=== PATIENT | female | born 1985 | race African-American/Black ===

== ENCOUNTER 2017-07-15 15:56 | Emergency (ER) | payer BC ==
[2017-07-15] MEDS ORDERED: MAG HYDROX/AL HYDROX/SIMETH SUSP 30 ML UDCUP PO ONE (16:21)
[2017-07-15] MEDS ORDERED: LIDOCAINE 2% VISCOUS SOLN 20 ML UDCUP PO ONE (16:21)
--- NOTE | 2017-07-15 16:25 | ER Document Report ---
ED Medical Screen (RME) - General Chief Complaint: Abdominal Pain Stated Complaint: STOMACH PAIN Time Seen by Provider: 07/15/17 16:15 Notes: This 32-year-old female patient past medical history gastric bypass after complications from a lap band, reports sudden onset 4:30 AM this morning with left-sided abdominal pain going into the back. She has been taking Pepto-Bismol , Tums, and Maalox throughout the day without relief. Brief exam shows the pain to actually be epigastric. She has had her gallbladder removed in the past. She does have a history of reflux and heartburn. She will be given Maalox with lidocaine to see if it does improve her discomfort and lab work including UA will be collected prior to ordering a CT scan. I suspect she will need a double contrasted CT scan if the urinalysis lab work and GI cocktail do not point toward a diagnosis. I have greeted and performed a rapid initial assessment of this patient. A comprehensive ED assessment and evaluation of the patient, analysis of test results and completion of the medical decision making process will be conducted by additional ED providers. TRAVEL OUTSIDE OF THE [place] IN LAST 30 DAYS: No - Related Data Allergies/Adverse Reactions: amoxicillin Allergy (Verified 07/15/17 15:58) latex Allergy (Verified 07/15/17 15:58) Physical Exam - Vital signs Vitals: Temp Pulse Resp BP Pulse Ox 98.4 F 71 16 138/88 H 100 07/15/17 16:00 07/15/17 16:00 07/15/17 16:00 07/15/17 16:00 07/15/17 16:00 Course - Vital Signs Vital signs: Temp Pulse Resp BP Pulse Ox 98.4 F 71 16 138/88 H 100 07/15/17 16:00 07/15/17 16:00 07/15/17 16:00 07/15/17 16:00 07/15/17 16:00
[2017-07-15 16:47] LABS: ABSOLUTE EOSINOPHILS # (AUTO) 0.2 10^3/uL (0.0-0.6); ABSOLUTE LYMPHOCYTES (AUTO) 2.5 10^3/uL (0.5-4.7); ABSOLUTE MONOCYTES (AUTO) 0.5 10^3/uL (0.1-1.4); ABSOLUTE NEUT (AUTO) 3.7 10^3/uL (1.7-8.2); BASOPHILS % (AUTO) 0.5 % (0-2); EOSINOPHILS % (AUTO) 3.3 % (0-6); HEMATOCRIT 35.3 % (36.0-47.0); HEMOGLOBIN 10.5 g/dL (12.0-15.5); LYMPHOCYTES % (AUTO) 36.2 % (13-45); MEAN CORPUSCULAR HEMOGLOBIN 20.9 pg (27.0-33.4); MEAN CORPUSCULAR HGB CONC 29.7 g/dL (32.0-36.0); MEAN CORPUSCULAR VOLUME 70 fl (80-97); MONOCYTES % (AUTO) 6.5 % (3-13); PLATELET COUNT 369 10^3/uL (150-450); RED BLOOD COUNT 5.02 10^6/uL (3.72-5.28); RED CELL DISTRIBUTION WIDTH 28.8 % (11.5-14.0); SEGMENTED NEUTROPHILS % (AUTO) 53.5 % (42-78); TOTAL CELLS COUNTED % (AUTO) 100 %
[2017-07-15 17:05] LABS: ALANINE AMINOTRANSFERASE 30 U/L (9-52); ALBUMIN 3.8 g/dL (3.5-5.0); ALKALINE PHOSPHATASE 89 U/L (38-126); ANION GAP 5 (5-19); ASPARTATE AMINO TRANSFERASE 19 U/L (14-36); BILIRUBIN,DIRECT 0.3 mg/dL (0.0-0.4); BILIRUBIN,TOTAL 0.3 mg/dL (0.2-1.3); BLOOD UREA NITROGEN 10 mg/dL (7-20); CALCIUM 9.2 mg/dL (8.4-10.2); CARBON DIOXIDE 26 mmol/L (22-30); CHLORIDE 108 mmol/L (98-107); GLUCOSE 88 mg/dL (75-110); LIPASE 58.2 U/L (23-300); POTASSIUM 4.5 mmol/L (3.6-5.0)
[2017-07-15 17:17] LABS: ACANTHOCYTES SLIGHT; ANISOCYTOSIS 3+; HYPOCHROMASIA 1+; OVALOCYTES SLIGHT; PLATELET COMMENT ADEQUATE; POIKILOCYTOSIS 2+; TOXIC GRANULATION SLIGHT
[2017-07-15] MEDS ORDERED: NORMAL SALINE 1000 ML 1,000 ML IV ONE (17:17)
[2017-07-15] MEDS ORDERED: ONDANSETRON HCL INJ/PF 4 MG/2 ML SDV IV ONE (17:17)
[2017-07-15] MEDS ORDERED: MORPHINE SULFATE 10 MG/ML INJ IV ONE (17:17)
--- NOTE | 2017-07-15 17:19 | ER Document Report ---
ED GI/ - General Chief Complaint: Abdominal Pain Stated Complaint: STOMACH PAIN Time Seen by Provider: 07/15/17 16:15 Notes: 32-year-old female. Prior history of abdominoplasty surgeries, status post gastric bypass surgery as well as status post cholecystectomy to the emergency department complaining of epigastric and left upper quadrant pain. Has been getting iron injections weekly for anemia. Previous hemoglobin was 5. No fever , chills, sweats. Feels like she is obstructed. Feels like she needs to pass gas but cannot but has had some liquid stool. Occasionally pain goes up into the chest and the pain is causing shortness of breath. TRAVEL OUTSIDE OF THE [place] IN LAST 30 DAYS: No - HPI Patient complains to provider of: Abdominal pain, Diarrhea Onset: Just prior to arrival Timing/Duration: Sudden Severity at maximum: Moderate Severity in ED: Moderate Pain Level: 3 Context: denies: Bad food, Lifting, Out of the country travel, , Recent trauma, Other - Related Data Allergies/Adverse Reactions: amoxicillin Allergy (Verified 07/15/17 15:58) latex Allergy (Verified 07/15/17 15:58) Past Medical History - General Information source: Patient - Social History Smoking Status: Never Smoker Frequency of alcohol use: None Drug Abuse: None Lives with: Family Family History: Reviewed & Not Pertinent Patient has suicidal ideation: No Patient has homicidal ideation: No - Past Medical History Cardiac Medical History: Reports: None Pulmonary Medical History: Reports: None Renal/ Medical History: Denies: Hx Peritoneal Dialysis Past Surgical History: Reports: Hx Section, Hx Cholecystectomy, Hx Gastric Bypass Surgery, Other - Gastric bypass surgery Review of Systems - Review of Systems Constitutional: No symptoms reported EENT: No symptoms reported Cardiovascular: Chest pain, Dyspnea. denies: Orthopnea, Syncope, Edema Respiratory: Short of breath. denies: Cough, Hurts to breathe, Wheezing Gastrointestinal: Abdominal pain, Diarrhea, Nausea, Vomiting Genitourinary: No symptoms reported Female Genitourinary: No symptoms reported Musculoskeletal: No symptoms reported Skin: No symptoms reported Hematologic/Lymphatic: No symptoms reported Neurological/Psychological: No symptoms reported Physical Exam - Vital signs Vitals: Temp Pulse Resp BP Pulse Ox 98.4 F 71 16 138/88 H 100 07/15/17 16:00 07/15/17 16:00 07/15/17 16:00 07/15/17 16:00 07/15/17 16:00 Interpretation: Normal - General General appearance: Appears well, Alert - HEENT Head: Normocephalic, Atraumatic Eyes: Normal Pupils: PERRL - Respiratory Respiratory status: No respiratory distress Chest status: Nontender Breath sounds: Normal Chest palpation: Normal - Cardiovascular Rhythm: Regular Heart sounds: Normal auscultation Murmur: No - Abdominal Inspection: Normal Distension: No distension Bowel sounds: Normal Tenderness: Tender, Other - Tenderness in the epigastric and left upper quadrant area. Mild voluntary regarding no rebound. Organomegaly: No organomegaly - Back Back: Normal, Nontender - Extremities General upper extremity: Normal inspection, Nontender, Normal color, Normal ROM , Normal temperature General lower extremity: Normal inspection, Nontender, Normal color, Normal ROM , Normal temperature, Normal weight bearing. No: Apoorva's sign - Neurological Neuro grossly intact: Yes Cognition: Normal Orientation: AAOx4 Britt Coma Scale Eye Opening: Spontaneous [place] Coma Scale Verbal: Oriented [place] Coma Scale Motor: Obeys Commands [place] Coma Scale Total: 15 Speech: Normal Motor strength normal: LUE, RUE, LLE, RLE Sensory: Normal - Psychological Associated symptoms: Normal affect, Normal mood - Skin Skin Temperature: Warm Skin Moisture: Dry Skin Color: Normal Course - Re-evaluation Re-evalutation: 07/15/17 19:24 Uncertain etiology of his symptoms. Basic labs unremarkable. X-ray unrevealing. EKG within normal limits. Cardiac troponin negative. Will proceed with CT scan. 07/15/17 19:24 Patient initially received 5 mg of morphine. After about 1 hours after morphine administration patient began to have worsening pain in the abdomen. Fentanyl ordered. 07/15/17 19:[address] scan at this time with oral and IV contrast. 07/15/17 21:09 CT scan unremarkable for anything acute 07/15/17 21:26 Consult with the surgeon regarding the patient. He looked at CT scan as well. Nothing remarkable there. At this time find nothing further. Will advise 12- 24 hour follow-up for abdominal pain according to the discharge instructions. Patient advised to return for any worsening symptoms or concerns 07/15/17 21:27 07/15/17 22:39 Lengthy conversation had with patient in the presence of multiple family members. Patient stated that she wanted to go home that she was feeling better. There was some concern by family members as to the reason why she had pain and whether or not she should go home. At length explained to them of the negative workup at this time and that these presenting symptoms often times require further evaluation and multiple visits to actually find out what is going on. Offered admission for pain control or inability to tolerate if she failed oral challenge. She was able to drink fluids without difficulty. Her pain was much improved and she wanted to go home. I have encouraged her to return for repeat evaluation if pain is getting worse or she has any further concerns. - Vital Signs Vital signs: Temp Pulse Resp BP Pulse Ox 98.4 F 71 20 103/79 86 L 07/15/17 16:00 07/15/17 16:00 07/15/17 22:00 07/15/17 22:00 07/15/17 22:00 - Laboratory Result Diagrams: 07/15/17 16:29 07/15/17 16:29 Laboratory results interpreted by me: 07/15/17 07/15/17 07/15/17 16:29 16:29 16:32 Hgb 10.5 L Hct 35.3 L MCV 70 L MCH 20.9 L MCHC 29.7 L RDW 28.8 H Chloride 108 H Urine Urobilinogen 2.0 H Discharge - Discharge Clinical Impression: Abdominal pain Qualifiers: Abdominal location: left upper quadrant Qualified Code(s): R10.12 - Left upper quadrant pain Condition: Good Disposition: HOME, SELF-CARE Instructions: Abdominal Pain ([facility]) Additional Instructions: The workup today was unremarkable. It is uncertain why you are having pain. Currently your labs, x-ray, CAT scan all look fairly unremarkable. In the abdomen is getting worse or no better in the next 12-24 hours it will be very important that you return for repeat evaluation or follow-up with your doctor tomorrow for repeat evaluation. Prescriptions: Hydrocodone/Acetaminophen [Sweet Grass 5-325 mg Tablet] 1 tab PO TID PRN 4 Days #12 tablet PRN Reason: Ondansetron [Zofran Odt 4 mg Tablet] 1 - 2 tab PO Q4H PRN #15 tab.rapdis PRN Reason: For Nausea/Vomiting Referrals: TRELL MAYNARD MD [Primary Care Provider] - 07/16/17 8:00 am
--- NOTE | 2017-07-15 17:58 | RADIOLOGY REPORT (SQ) ---
EXAM DESCRIPTION: ACUTE ABDOMEN SERIES COMPLETED DATE/TIME: 07/15/2017 5:35 pm REASON FOR STUDY: abd pain COMPARISON: None. NUMBER OF VIEWS: Three views. TECHNIQUE: Frontal chest, supine abdomen and upright/ abdomen radiographic images acquired. LIMITATIONS: None. FINDINGS: CHEST: Lungs clear of infiltrates. FREE AIR: None. No abnormal gas collections. BOWEL GAS PATTERN: Nonobstructive pattern. No dilated loops or air fluid levels. CALCIFICATIONS: Stippled opacification pattern that appears to be associated with the proximal small bowel. HARDWARE: None in the abdomen. SOFT TISSUES: No gross mass or suggestion of organomegaly. BONES: No acute fracture. No worrisome bone lesions. OTHER: No other significant finding. IMPRESSION: There appears to be a small amount of radiopaque material in the proximal small bowel. The abdomen is generally unremarkable. TECHNICAL DOCUMENTATION: JOB ID: [id number]- All Rights Reserved Reading location - IP/workstation name: [email or web address]
[2017-07-15 18:39] LABS: APPEARANCE,URINE CLEAR; BILIRUBIN,URINE NEGATIVE (NEGATIVE); COLOR,URINE YELLOW; GLUCOSE, URINE NEGATIVE (NEGATIVE); KETONES,URINE NEGATIVE (NEGATIVE); LEUKOCYTE ESTERASE,URINE NEGATIVE (NEGATIVE); NITRITE,URINE NEGATIVE (NEGATIVE); PROTEIN,URINE NEGATIVE (NEGATIVE)
[2017-07-15] MEDS ORDERED: FENTANYL CITRATE INJ/PF 100 MCG/2 ML AMPUL IV ONE (19:12)
[2017-07-15] MEDS ORDERED: FAMOTIDINE INJ/PF 20 MG/2 ML SDV IV ONE (19:13)
--- NOTE | 2017-07-15 20:36 | RADIOLOGY REPORT (SQ) ---
EXAM DESCRIPTION: CT ABD/PELVIS WITH IV ORAL COMPLETED DATE/TIME: 07/15/2017 7:53 pm REASON FOR STUDY: abd pain COMPARISON: None. TECHNIQUE: CT scan of the abdomen and pelvis performed with intravenous and oral contrast using dai stefanie scanning technique with dynamic intravenous contrast injection. Images reviewed with lung, soft t issue, and bone windows. Reconstructed coronal and sagittal MPR images reviewed. Delayed images for e valuation of the urinary system also acquired. All images stored on PACS. All CT scanners at this facility use dose modulation, iterative reconstruction, and/or weight based d osing when appropriate to reduce radiation dose to as low as reasonably achievable (ALARA). [facility]: Dose Right [facility]: CareDose [facility]: Dose Right [facility]: Teradose 4D [facility]: iyzico CONTRAST TYPE AND DOSE: contrast/concentration: Isovue 370.00 mg/ml; Total Contrast Delivered: 100.0 ml; Total Saline Delivered: 50.0 ml RENAL FUNCTION: None required. The patient is less than 50 years old. RADIATION DOSE: CT Rad equipment meets quality standard of care and radiation dose reduction techniq ues were employed. CTDIvol: 16.7 - 20.4 mGy. DLP: 2041 mGy-cm. . LIMITATIONS: None. FINDINGS: LOWER CHEST: No significant findings. No nodules or infiltrates. LIVER: Normal size. No masses. No dilated ducts. SPLEEN: Normal size. No focal lesions. PANCREAS: No masses. No significant calcifications. No adjacent inflammation or peripancreatic fluid collections. Pancreatic duct not dilated. GALLBLADDER: Surgically absent. ADRENAL GLANDS: No significant masses or asymmetry. RIGHT KIDNEY AND URETER: No solid masses. No significant calcifications. No hydronephrosis or hyd roureter. LEFT KIDNEY AND URETER: No solid masses. No significant calcifications. No hydronephrosis or hydr oureter. AORTA AND VESSELS: No aneurysm. No dissection. Renal arteries, SMA, celiac without stenosis. RETROPERITONEUM: No retroperitoneal adenopathy, hemorrhage or masses. BOWEL AND PERITONEAL CAVITY: No obstruction. No visualized masses. No free fluid. No inflammatory ch anges or thickening of bowel wall. Gastric bypass. APPENDIX: Normal. PELVIS: No significant masses. Normal bladder. No free fluid. ABDOMINAL WALL: No masses. No hernias. BONES: No significant or acute findings. OTHER: No other significant finding. IMPRESSION: NO SIGNIFICANT OR ACUTE FINDINGS IN THE ABDOMEN OR PELVIS. TECHNICAL DOCUMENTATION: JOB ID: [id number] Quality ID # [id number]: Final reports with documentation of one or more dose reduction techniques (e.g., Au tomated exposure control, adjustment of the mA and/or kV according to patient size, use of iterative reconstruction technique) 2010 [employer]- All Rights Reserved Reading location - IP/workstation name: [email or web address]
[2017-07-15] MEDS ORDERED: HYDROCODONE/ACETAMINOPHEN 5-325 MG (6 TAB/ER DISP) PO PRN (21:52)
[2017-07-15 22:07] VITALS: BP 103/79
--- NOTE | 2017-07-15 22:46 | EKG REPORT ---
SEVERITY:- BORDERLINE ECG - SINUS RHYTHM BORDERLINE T ABNORMALITIES, ANTERIOR LEADS : Confirmed by: Jono Capone 15-Jul-2017 22:45:18
== END 2017-07-15 22:07 | disposition home or self-care (01) ==
LOC: ER 15:56
DX: R10.12 Left upper quadrant pain (principal); R10.13 Epigastric pain; R19.7 Diarrhea, unspecified; R06.00 Dyspnea, unspecified; Z98.84 Bariatric surgery status
CPT/HCPCS: 93005; 99285; 96361; 96374; 96375; 36415; 83690; 85025; 81025; 80053; 81001; 84484; 74022; 74177; 93010; J3010; J3490; J2270; J2405; J7030; S0028

== ENCOUNTER 2020-02-25 06:40 | Day surgery (SDC) | payer BC ==
[2020-02-21 12:14] LABS: HEMATOCRIT 40.2 % (36.0-47.0); HEMOGLOBIN 13.1 g/dL (12.0-15.5); MEAN CORPUSCULAR HEMOGLOBIN 27.5 pg (27.0-33.4); MEAN CORPUSCULAR HGB CONC 32.6 g/dL (32.0-36.0); MEAN CORPUSCULAR VOLUME 84 fl (80-97); PLATELET COUNT 275 10^3/uL (150-450); RED BLOOD COUNT 4.78 10^6/uL (3.72-5.28); RED CELL DISTRIBUTION WIDTH 17.6 % (11.5-14.0); WHITE BLOOD COUNT 6.9 10^3/uL (4.0-10.5)
[2020-02-21 12:21] LABS: APPEARANCE,URINE CLEAR; BILIRUBIN,URINE NEGATIVE (NEGATIVE); COLOR,URINE YELLOW; GLUCOSE, URINE NEGATIVE (NEGATIVE); KETONES,URINE NEGATIVE (NEGATIVE); LEUKOCYTE ESTERASE,URINE NEGATIVE (NEGATIVE); NITRITE,URINE NEGATIVE (NEGATIVE); PROTEIN,URINE NEGATIVE (NEGATIVE); URINE SPECIFIC GRAVITY 1.015
[~2020-02-25 06:40] MED LIST: FENTANYL CITRATE INJ/PF 100 MCG/2 ML AMPUL ONE; LACTATED RINGERS 1000 ML IV PRN; LIDOCAINE 0.5% INJ-PF (5 MG/ML) 50 ML SDV SUBCUT PRN; MIDAZOLAM 2 MG/2 ML INJ ONE; ONDANSETRON HCL INJ/PF 4 MG/2 ML SDV ONE; PROPOFOL INJ 200 MG/20 ML VIAL IV ONE
[2020-02-25] MEDS ORDERED: SUCCINYLCHOLINE CHLORIDE INJ 200 MG/10 ML VIAL ONE (08:08)
[2020-02-25] MEDS ORDERED: DIPHENHYDRAMINE HCL 50 MG/ML VIAL IV PRN (08:35)
[2020-02-25] MEDS ORDERED: ONDANSETRON HCL INJ/PF 4 MG/2 ML SDV IV PRN (08:35)
[2020-02-25] MEDS ORDERED: MEPERIDINE HCL/PF INJ 25 MG/1 ML DISP.SYRIN IV PRN (08:35)
[2020-02-25] MEDS ORDERED: MORPHINE SULFATE 10 MG/ML INJ IV PRN (08:35)
[2020-02-25] MEDS ORDERED: FENTANYL CITRATE INJ/PF 100 MCG/2 ML AMPUL IV PRN ×3 (08:35)
[2020-02-25] MEDS ORDERED: PROMETHAZINE HCL INJ 25 MG/1 ML VIAL IV PRN ×2 (08:35)
[2020-02-25] MEDS ORDERED: KETOROLAC TROMETHAMINE INJ/PF 30 MG/1 ML SDV IV PRN (09:20)
[2020-02-25] MEDS ORDERED: IBUPROFEN 800 MG TABLET PO PRN (09:20)
[2020-02-25] MEDS ORDERED: OXYCODONE-ACETAMINOPHEN 5-325 MG TABLET PO PRN ×2 (09:20)
[2020-02-25] MEDS ORDERED: RINGERS SOLUTION,LACTATED 1,000 ML IV PRN (09:20)
--- NOTE | 2020-02-25 09:25 | Operative Report ---
Operative Report DATE OF SURGERY: 02/25/20 PREOPERATIVE DIAGNOSIS: Patient desires a NovaSure ablation for menorrhagia POSTOPERATIVE DIAGNOSIS: Same OPERATION: Hysteroscopy D&C NovaSure ablation SURGEON: DON WOODS ANESTHESIA: Moderate Sedation TISSUE REMOVED OR ALTERED: Cervical and endometrial curettings COMPLICATIONS: None ESTIMATED BLOOD LOSS: 20 cc INTRAOPERATIVE FINDINGS: Uterine cavity is 4-1/2 cm in length and 4.4 cm in width PROCEDURE: Patient was taken the OR and placed in supine position. Anesthesia was induced. She was placed in the dorsolithotomy position using Daniel stirrups. Her perineum and vagina were prepared and draped in sterile fashion. She had voided prior to the procedure. A speculum was placed in the anterior lip cervix was grasped with a tenaculum. Uterus sounded to 8 cm before and after the case. The cervix was dilated. Endocervical curettings were obtained. Hysteroscopy was performed and showed an empty uterine cavity. Endometrial curettings were obtained. The uterine cavity was measured at a length of 4.5 cm. The NovaSure device was placed and the width was measured at 4.4 cm. The device was tested and fired without difficulty. At the end of the case relook into the uterine cavity showed a well ablated cavity. The uterus sounded to 8 cm once again. A [id number]-spnun 2-0 chromic was placed at the tenaculum site to stop some bleeding. All instruments were removed she was placed back in supine position. She is brought out of anesthesia and taken recovery in stable condition.
--- NOTE | 2020-02-25 09:27 | Discharge Summary ---
Discharge Summary (SDC) - Discharge Final Diagnosis: Heavy menses Date of Surgery: 02/25/20 Discharge Date: 02/25/20 Condition: Good Prescriptions: Ibuprofen [Motrin 800 mg Tablet] 800 mg PO Q8H PRN #30 tablet PRN Reason: Referrals: ELVIA BRINK PA-C [Primary Care Provider] -
[2020-02-25] MEDS ORDERED: IBUPROFEN 800 MG TABLET ONE (10:05)
[2020-02-25 11:18] VITALS: BP 104/60
--- OUTSIDE RECORDS SUMMARY | 2020-02-28 08:53 | XMS REPORT ---
:1985 [facility] [address] [address] Care Team Providers Name Role Phone China Oliva M.D. Attending Clinician Unavailable Allergies, Adverse Reactions, Alerts Allergy Name Allergy Status Severity Reaction(s) Onset Inactive Treat ing Comments Type Date Date Clinician Amoxicillin Allergy Active (Ingredient(s to Drug ): (Finding) amoxicillin) Medications Ordered Filled Start Stop Current Ordering Indication Dosage Frequency Signature Comments Components Medication Medication Date Date Medication? Clinician (SIG) Name Name Feraheme 2020-0 No 510mg Feraheme 8-27 00:00: 00 Sodium 2020-0 No 50mL Sodium Chloride 8-27 Chloride 00:00: 00 Feraheme 2020-0 No 510mg Feraheme 8-20 00:00: 00 Sodium 2020-0 No 50mL Sodium Chloride 8-20 Chloride 00:00: 00 Drisdol 2020-0 Yes 1 11-09 00:00: 00 Feraheme 2020-0 No 510mg Feraheme 6-18 00:00: 00 Sodium 2020-0 No 50mL Sodium Chloride 6-18 Chloride 00:00: 00 Sodium 2020-0 2020- No 100mL Sodium Chloride 6-10 08-27 Chloride 00:00: 00:00 00 :00 Feraheme 2020-0 2020- No 510mg Feraheme 6-10 08-27 00:00: 00:00 00 :00 hydrOXYzine Yes 2 HCl Lexapro No 1 Lexapro 2020- No 1 02-08 15:02 :51 Problems Condition Condition Condition Status Onset Resolution Last Treatin g Comments Name Details Category Date Date Treatment Clinician Date Intestinal Intestinal Diagnosis active malabsorpti malabsorpti on on Iron Iron Diagnosis active deficiency deficiency anemia anemia Procedures Procedure Date / Time Performed Performing Clinician Sissy royal Laparoscopic Gastric Banding Tummy Tuck section cholecystectomy Gastric bypass Results Test Description Test Time Test Comments Text Results Atomic Results Result Comments WBC 2020-02-09 14:44:00 Test Item Value Reference Range Comments WBC (test code = WBC) 7.8000 4.0000-10.0000 Lymphocytes % (test code = Lymphocytes %) 30.5000 % 22.400 0-43.6000 MID% (test code = MID%) 6.0000 % 1.2000-11.2000 Neutrophils % (test code = Neutrophils %) 63.5000 % 48.900 0-69.9000 Lymphocytes (test code = Lymphocytes) 2.3000 1.2000-3.2 000 MID (test code = MID) 0.6000 0.1000-1.1000 Neutrophils (test code = Neutrophils) 4.9000 1.5000-6.7 000 RBC (test code = RBC) 5.2200 3.7000-4.9000 HGB (test code = HGB) 13.5000 g/dL 11.2000-18.0000 HCT (test code = HCT) 42.7000 % 34.0000-44.0000 MCV (test code = MCV) 81.7000 fL 80.0000-94.0000 MCH (test code = MCH) 25.9000 pg 27.0000-34.0000 MCHC (test code = MCHC) 31.7000 g/dL 31.5000-36.0000 RDW (test code = RDW) 17.0000 11.0000-18.0000 PLT (test code = PLT) 345.0000 140.0000-440.0000 MPV (test code = MPV) 7.6000 fL 6.8000-10.6000 [id number] 12:28:00 Test Item Value Reference Range Comments Creatinine (test code = Creatinine) 0.8900 mg/dL 0.5700-1.000 0 Cr Clearance (Est) (test code = Cr 166.0700 75.0000-115.0 000 Clearance (Est)) Glucose (test code = Glucose) 79.0000 mg/dL 65.0000-99.0000 BUN (test code = BUN) 12.0000 mg/dL 6.0000-20.0000 eGFR Coz-Mvwpmhw-Zemgqkmv (test code = 84.0000 eGFR Czg-Gwqznjx-Jvdvatht) eGFR -Japanese (test code = eGFR 96.0000 -Japanese) BUN/Creat Ratio (test code = BUN/Creat 13.0000 9.0000-23 .0000 Ratio) Sodium (test code = Sodium) 138.0000 mmol/L 134.0000-144.0000 Potassium (test code = Potassium) 4.5000 mmol/L 3.5000-5.2000 Chloride (test code = Chloride) 103.0000 mmol/L 96.0000-106.0000 CO2 (test code = CO2) 22.0000 mmol/L 20.0000-29.0000 Calcium (test code = Calcium) 9.2000 mg/dL 8.7000-10.2000 Protein, Total (test code = Protein, 7.0000 g/dL 6.0000-8.50 00 Total) Albumin (test code = Albumin) 4.0000 g/dL 3.8000-4.8000 Globulin (test code = Globulin) 3.0000 g/dL 1.5000-4.5000 A/G Ratio (test code = A/G Ratio) 1.3000 1.2000-2.2000 Bilirubin, Total (test code = Bilirubin, 0.2000 mg/dL 0.0000- 1.2000 Total) Alkaline Phosphatase (test code = Alkaline 90.0000 39.00 00-117.0000 Phosphatase) AST (SGOT) (test code = AST (SGOT)) 19.0000 0.0000-40.00 00 ALT (SGPT) (test code = ALT (SGPT)) 16.0000 0.0000-32.00 00 Iron, Total (test code = Iron, Total) 28.0000 27.0000-15 9.0000 TIBC (test code = TIBC) 341.0000 250.0000-450.0000 UIBC (test code = UIBC) 313.0000 131.0000-425.0000 % Iron Saturation (test code = % Iron 8.0000 % 15.0000-55 .0000 Saturation) Ferritin (test code = Ferritin) 22.0000 ng/mL 15.0000-150.0000 [id number] 14:42:00 Test Item Value Reference Range Comments WBC (test code = WBC) 6.9000 4.0000-10.0000 Lymphocytes % (test code = Lymphocytes %) 30.1000 % 22.400 0-43.6000 MID% (test code = MID%) 6.9000 % 1.2000-11.1999 Neutrophils % (test code = Neutrophils %) 63.0000 % 48.900 0-69.9000 Lymphocytes (test code = Lymphocytes) 2.1000 1.2000-3.2 000 MID (test code = MID) 0.4000 0.1000-1.1000 Neutrophils (test code = Neutrophils) 4.4000 1.5000-6.7 000 RBC (test code = RBC) 5.1500 3.7000-4.9000 HGB (test code = HGB) 12.1000 g/dL 11.2000-18.0000 HCT (test code = HCT) 39.7000 % 34.0000-44.0000 MCV (test code = MCV) 77.0000 fL 80.0000-94.0000 MCH (test code = MCH) 23.5000 pg 27.0000-34.0000 MCHC (test code = MCHC) 30.5000 g/dL 31.5000-36.0000 RDW (test code = RDW) 26.8000 11.0000-18.0000 PLT (test code = PLT) 333.0000 140.0000-440.0000 MPV (test code = MPV) 7.9000 fL 6.8000-10.6000 [id number] 13:48:00 Test Item Value Reference Range Comments Creatinine (test code = Creatinine) 0.7500 mg/dL 0.5700-1.000 0 Cr Clearance (Est) (test code = Cr 189.4300 75.0000-115.0 000 Clearance (Est)) Glucose (test code = Glucose) 82.0000 mg/dL 65.0000-99.0000 BUN (test code = BUN) 15.0000 mg/dL 6.0000-20.0000 eGFR Sgs-Saskkey-Zwzfotqe (test code = 103.0000 eGFR Ahh-Xrtwslr-Vxxarfov) eGFR -Japanese (test code = eGFR 119.0000 -Japanese) BUN/Creat Ratio (test code = BUN/Creat 20.0000 9.0000-23 .0000 Ratio) Sodium (test code = Sodium) 136.0000 mmol/L 134.0000-144.0000 Potassium (test code = Potassium) 4.4000 mmol/L 3.5000-5.2000 Chloride (test code = Chloride) 104.0000 mmol/L 96.0000-106.0000 CO2 (test code = CO2) 20.0000 mmol/L 20.0000-29.0000 Calcium (test code = Calcium) 8.6000 mg/dL 8.7000-10.2000 Protein, Total (test code = Protein, 6.8000 g/dL 6.0000-8.50 00 Total) Albumin (test code = Albumin) 3.9000 g/dL 3.8000-4.8000 Globulin (test code = Globulin) 2.9000 g/dL 1.5000-4.5000 A/G Ratio (test code = A/G Ratio) 1.3000 1.2000-2.2000 Bilirubin, Total (test code = Bilirubin, 0.2000 mg/dL 0.0000- 1.2000 Total) Alkaline Phosphatase (test code = 94.0000 39.0000-117.00 00 Alkaline Phosphatase) AST (SGOT) (test code = AST (SGOT)) 19.0000 0.0000-40.00 00 ALT (SGPT) (test code = ALT (SGPT)) 14.0000 0.0000-32.00 00 Iron, Total (test code = Iron, Total) 10.0000 27.0000-15 9.0000 TIBC (test code = TIBC) 403.0000 250.0000-450.0000 UIBC (test code = UIBC) 393.0000 131.0000-425.0000 % Iron Saturation (test code = % Iron 2.0000 % 15.0000-55 .0000 Saturation) Vitamin B12 (test code = Vitamin B12) 259.0000 pg/mL 232.0000-1 245.0000 Folate (test code = Folate) 9.1000 ng/mL Vitamin D (25-Hydroxy) (test code = 5.9000 ng/mL 30.0000-100. 0000 Vitamin D (25-Hydroxy)) Ferritin (test code = Ferritin) 3.0000 ng/mL 15.0000-150.0000 [id number] 14:35:00 Test Item Value Reference Range Comments WBC (test code = WBC) 7.6000 4.0000-10.0000 Lymphocytes % (test code = Lymphocytes %) 30.7000 % 22.400 0-43.6000 MID% (test code = MID%) 6.1000 % 1.2000-11.2000 Neutrophils % (test code = Neutrophils %) 63.2000 % 48.900 0-69.9000 Lymphocytes (test code = Lymphocytes) 2.3000 1.2000-3.2 000 MID (test code = MID) 0.5000 0.1000-1.1000 Neutrophils (test code = Neutrophils) 4.8000 1.5000-6.7 000 RBC (test code = RBC) 4.4300 3.7000-4.9000 HGB (test code = HGB) 8.2000 g/dL 11.2000-18.0000 HCT (test code = HCT) 27.3000 % 34.0000-44.0000 MCV (test code = MCV) 61.7000 fL 80.0000-94.0000 MCH (test code = MCH) 18.5000 pg 27.0000-34.0000 MCHC (test code = MCHC) 30.0000 g/dL 31.5000-36.0000 RDW (test code = RDW) 18.1000 11.0000-18.0000 PLT (test code = PLT) 417.0000 140.0000-440.0000 MPV (test code = MPV) 7.5000 fL 6.8000-10.6000 Encounters Start End Encounter Admission Attending Care Care Encounter Date/Time Date/Time Type Type Clinicians Facility Department ID 2020-02-09 2020-02-09 José Kurtz Karthik [id number] 00:00:00 00:00:00 [facility] Oncology Oncology [facility] 2019-12-09 2019-12-09 Outpatient EveretterafalYvrose Yvrose n [id number] 00:00:00 00:00:00 [facility] Medical Oncology Oncology [facility] 2019-12-08 2019-12-08 Outpatient José Frances n [id number] 00:00:00 00:00:00 [facility] Oncology Oncology [facility] 2019-12-02 2019-12-02 Outpatient Pj José Frances n [id number] 00:00:00 00:00:00 [facility] Oncology Oncology [facility] 2019-12-01 2019-12-01 Outpatient Everetterafal José Frances n [id number] 00:00:00 00:00:00 [facility] Medical Oncology Oncology [facility] 2019-11-25 2019-11-25 Outpatient Pj José Frances n [id number] 00:00:00 00:00:00 [facility] Oncology Oncology [facility] 2019-11-24 2019-11-24 Outpatient Pj Yvrose Yvrose n [id number] 00:00:00 00:00:00 [facility] Oncology Oncology [facility] 2019-11-12 2019-11-12 Outpatient Pj José Frances n [id number] 00:00:00 00:00:00 [place] [facility]omas [facility] 2019-11-11 2019-11-11 Outpatient [facility] n [id number] 00:00:00 00:00:00 [facility] On[facility] 2019-11-10 2019-11-10 Dr. Pj Oliva [facility] n [id number] 00:00:00 00:00:00 [place] Atkinson [facility] Oncology [facility] 2019-09-30 2019-09-30 Outpatient [facility] n [id number] 00:00:00 00:00:00 [facility] Medical Oncology [facility] 2019-09-29 2019-09-29 Outpatient [facility] n [id number] 00:00:00 00:00:00 [facility] 2019-09-22 2019-09-22 Out[facility] [id number] 00:00:00 00:00:00 [place] [facility] Oncology Oncology [facility] 2019-09-01 2019-09-01 Outpatient [facility] n [id number] 00:00:00 00:00:00 [facility] Medical Oncology [facility] 2019-08-31 2019-08-31 Mrs. Pj Henriquez [facility] n [id number] 00:00:00 00:00:00 Dennise Atkinson [facility] Oncology [facility] 2019-08-30 2019-08-30 Outpatient [facility] n [id number] 00:00:00 00:00:00 [facility] On[facility] 2019-05-19 2019-05-19 Outpatient [facility] n [id number] 00:00:00 00:00:00 [place] [facility] Medical Oncology [facility] 2019-03-19 2019-03-19 Outpatient [facility] Yvroseeleazar n [id number] 00:00:00 00:00:00 [facility] 2017-07-17 2017-07-17 [facility] n [id number] 00:00:00 00:00:00 [facility] Oncology Oncology [facility] 2017-06-11 2017-06-11 Outpatient [facility] Yvroseeleazar n [id number] 00:00:00 00:00:00 [facility] Oncology Oncology [facility] Social History Smoking Status Start Date Stop Date Never 2020-02-09 00:00:00 Social History Observation Description Sex Female Vital Signs Vital Name Observation Time Observation Value Comments BMI 2020-02-09 15:01:47 45.0600 BP bloom 2020-02-09 15:01:47 88.0000 mm[Hg] Bdy height 2020-02-09 15:01:47 66.0000 [in_i] SaO2% BldA PulseOx 2020-02-09 15:01:47 99.0000 % Heart rate 2020-02-09 15:01:47 80.0000 /min Resp rate 2020-02-09 15:01:47 16.0000 /min BP sys 2020-02-09 15:01:47 126.0000 mm[Hg] Body temperature 2020-02-09 15:01:47 98.2000 [degF] Weight 2020-02-09 15:01:47 279.2000 [lb_av] BMI 2019-12-09 14:19:38 44.1600 BP bloom 2019-12-09 14:19:38 70.0000 mm[Hg] Bdy height 2019-12-09 14:19:38 66.0000 [in_i] SaO2% BldA PulseOx 2019-12-09 14:19:38 99.0000 % Heart rate 2019-12-09 14:19:38 58.0000 /min Resp rate 2019-12-09 14:19:38 20.0000 /min BP sys 2019-12-09 14:19:38 98.0000 mm[Hg] Body temperature 2019-12-09 14:19:38 98.4000 [degF] Weight 2019-12-09 14:19:38 273.6000 [lb_av] BMI 2019-12-02 14:25:55 44.1000 BP bloom 2019-12-02 14:25:55 65.0000 mm[Hg] Bdy height 2019-12-02 14:25:55 66.0000 [in_i] SaO2% BldA PulseOx 2019-12-02 14:25:55 97.0000 % Heart rate 2019-12-02 14:25:55 61.0000 /min Resp rate 2019-12-02 14:25:55 16.0000 /min BP sys 2019-12-02 14:25:55 100.0000 mm[Hg] Body temperature 2019-12-02 14:25:55 98.1000 [degF] Weight 2019-12-02 14:25:55 273.2000 [lb_av] BMI 2019-11-10 14:58:04 42.8400 BP bloom 2019-11-10 14:58:04 77.0000 mm[Hg] Bdy height 2019-11-10 14:58:04 66.0000 [in_i] SaO2% BldA PulseOx 2019-11-10 14:58:04 98.0000 % Heart rate 2019-11-10 14:58:04 64.0000 /min Resp rate 2019-11-10 14:58:04 16.0000 /min BP sys 2019-11-10 14:58:04 116.0000 mm[Hg] Body temperature 2019-11-10 14:58:04 98.4000 [degF] Weight 2019-11-10 14:58:04 265.4000 [lb_av] Bdy height 2019-09-30 14:23:10 66.0000 [in_i] SaO2% BldA PulseOx 2019-09-30 14:23:10 97.0000 % Heart rate 2019-09-30 14:23:10 66.0000 /min Resp rate 2019-09-30 14:23:10 16.0000 /min BP sys 2019-09-30 14:23:10 99.0000 mm[Hg] Body temperature 2019-09-30 14:23:10 98.4000 [degF] Weight 2019-09-30 14:23:10 259.0000 [lb_av] BMI 2019-09-30 14:23:10 41.8000 BP bloom 2019-09-30 14:23:10 65.0000 mm[Hg] BMI 2019-09-22 14:40:33 41.2900 BP bloom 2019-09-22 14:40:33 67.0000 mm[Hg] Bdy height 2019-09-22 14:40:33 66.0000 [in_i] SaO2% BldA PulseOx 2019-09-22 14:40:33 99.0000 % Heart rate 2019-09-22 14:40:33 76.0000 /min Resp rate 2019-09-22 14:40:33 16.0000 /min BP sys 2019-09-22 14:40:33 101.0000 mm[Hg] Body temperature 2019-09-22 14:40:33 97.9000 [degF] Weight 2019-09-22 14:40:33 255.8000 [lb_av] BMI 2019-08-31 13:59:32 41.1700 BP bloom 2019-08-31 13:59:32 87.0000 mm[Hg] Bdy height 2019-08-31 13:59:32 66.0000 [in_i] SaO2% BldA PulseOx 2019-08-31 13:59:32 98.0000 % Heart rate 2019-08-31 13:59:32 71.0000 /min Resp rate 2019-08-31 13:59:32 20.0000 /min BP sys 2019-08-31 13:59:32 129.0000 mm[Hg] Body temperature 2019-08-31 13:59:32 98.1000 [degF] Weight 2019-08-31 13:59:32 255.1000 [lb_av]
== END 2020-02-25 11:00 | disposition home or self-care (01) ==
LOC: OROUT 06:40
PROVIDERS: ATTEND Obstetrics & Gynecology
DX: N92.0 Excessive and frequent menstruation with regular cycle (principal); D64.9 Anemia, unspecified; Z03.818 Encounter for observation for suspected exposure to other biological agents ruled out; Z90.49 Acquired absence of other specified parts of digestive tract; Z98.84 Bariatric surgery status; Z98.51 Tubal ligation status
CPT/HCPCS: 36415; 85027; 81025; 81001; 88305 ×2; 00952; 58563; U0003; J2250; J3010; J0330; J2405; J2704; C9803; 87635; 952